=== PATIENT | female | born 1960 | race Hispanic/Latino ===

== ENCOUNTER 2021-08-28 03:31 | Emergency (ER) | payer SELFPAY ==
[~2021-08-28] VITALS: Ht 160 cm; Wt 86.0 kg
[2021-08-28 04:23] LABS: URINE BILIRUBIN - DIPSTICK NEGATIVE (NEGATIVE); URINE BLOOD DIPSTICK MODERATE (NEGATIVE); URINE COLOR YELLOW; URINE GLUCOSE - DIPSTICK NEGATIVE (NEGATIVE); URINE KETONE >=80 mg/dL (NEGATIVE); URINE LEUK ESTERASE NEGATIVE (NEGATIVE); URINE PH 8.5 (4.5-8.0); URINE PROTEIN - DIPSTICK NEGATIVE (NEG-TRACE); URINE SPECIFIC GRAVITY 1.015; URINE UROBILINOGEN - DIPSTICK 0.2 E.U./dL (0.2)
[2021-08-28 04:29] LABS: HEMOGLOBIN 12.3 g/dl (12.0-16.0); IMMATURE GRANULOCYTES 0.5 % (0.0-5.0); MEAN CORPUSCULAR HGB 28.1 pG CALC (26.0-32.0); MEAN CORPUSCULAR HGB CONC 31.5 g/dL CAL (32.0-36.0); NEUT# 1.94 thou/uL (2.00-7.15); RED BLOOD COUNT 4.38 mill/uL (4.20-5.60); RED CELL DISTRI WIDTH 14.2 % (11.5-15.5)
[2021-08-28 04:32] LABS: URINE NITRITE - DIPSTICK NEGATIVE (Negative)
[2021-08-28 04:35] LABS: URINE SQUAMOUS EPITHELIAL CELL FEW EPI/hpf (0-FEW); URINE WBC 0-2 WBC/hpf (0-5)
[2021-08-28 04:38] LABS: ALBUMIN 4.2 g/dL (3.2-5.0); ALKALINE PHOSPHATASE 70 u/l (38-126); AMYLASE 63 u/l (30-110); ANION GAP 11 (6-22 (CALC)); BILIRUBIN, TOTAL 1.3 mg/dL (0.0-1.4); BUN 12 mg/dL (8-23); BUN/CREATININE RATIO 19 (12-20 (CALC)); CARBON DIOXIDE 36 mmol/l (22-30); CHLORIDE 94 mmol/l (95-108); CREATININE 0.6 mg/dL (0.5-1.0); GFR > 60 ML/MIN (>=60 (CALC)); GFR FOR AFR.AMER. > 60 ML/MIN (>=60 (CALC)); LIPASE 116 u/l (23-300); POTASSIUM 3.6 mmol/l (3.5-5.1); SGOT/AST 49 u/l (9-36); SODIUM 137 mmol/l (137-146); TOTAL PROTEIN 7.3 g/dL (6.3-8.2)
[2021-08-28 06:38] VITALS: BP 143/90
== END 2021-08-28 06:30 | disposition home or self-care (01) | DRG 694 ==
LOC: ED 03:31
PROVIDERS: Family Medicine
DX: N23 Unspecified renal colic (principal); R31.9 Hematuria, unspecified